=== PATIENT | female | born 1965 | race Caucasian/White ===

== ENCOUNTER 2016-11-25 11:03 | Emergency (ER) | payer OTHER ==
[2016-11-25 11:28] VITALS: BP 148/86
--- NOTE | 2016-11-25 11:59 | UC ---
Knee Pain HPI - HPI Summary HPI Summary: Patient has had chronic right hip and left knee pain. She states that her hip is due to five bulging discs and that this is not a new problem. In the morning , her hip is stiff and painful when she wakes. After moving and walking, the stiffness gets better. Her left knee is not a new problem but has more recently worsened. Three days ago, her dog jumped on her leg, and she heard a "pop." She states that since then, her knee has been popping when she stands up. She complains of constant pain. When she sits, the pain shoots up her thigh. When she stands, the pain shoots down her leg. She has tried Ibuprofen, but cannot always take it because she says that it makes her sleepy and she works overnight shifts. - History of Current Complaint Chief Complaint: UCLowerExtremity Stated Complaint: RIGHT HIP,LEFT KNEE PAIN Time Seen by Provider: 11/25/16 11:33 Hx Obtained From: Patient Hx Last Menstrual Period: June Onset/Duration: Gradual Onset - Chronic pain that worsened over the last three days Severity Initially: Moderate Severity Currently: Severe Pain Intensity: 10 Pain Scale Used: 0-10 Numeric Character: Sharp, Aching, Stiffness Aggravating Factor(s): Movement - also hurts at rest Alleviating Factor(s): OTC Meds Associated Signs And Symptoms: Positive: Swelling Able to Bear Weight: Yes - Allergies/Home Medications Allergies/Adverse Reactions: Allergies Allergy/AdvReac Type Severity Reaction Status Date / Time Cephalexin [From Keflex] Allergy Intermediate Rash, Verified 11/25/16 11:28 throat swelling Penicillins Allergy Intermediate rash, Verified 11/25/16 11:28 throat swelling Prednisone Allergy Intermediate Hallucinati Verified 11/25/16 11:28 ons Bee Venom Allergy Swelling Verified 11/25/16 11:28 Of Face,Lips,& Throat PMH/Surg Hx/FS Hx/Imm Hx Previously Healthy: Yes Cardiovascular History Of: Reports: Hypertension Respiratory History Of: Reports: Asthma - Surgical History Surgical History: Yes Surgery Procedure, Year, and Place: s/p Trach [id number]. tubal ligation. hernia 1998 - Family History Known Family History: Positive: Other - cancer, suicide in father - Social History Occupation: Employed Part-time Lives: With Family Alcohol Use: None Substance Use Type: None Smoking Status (MU): Former Smoker When Did the Patient Quit Smoking/Using Tobacco: 25 years ago - Immunization History Most Recent Influenza Vaccination: Not the 2016/2016 Season Most Recent Tetanus Shot: unknown Review of Systems Constitutional: Negative Skin: Negative Eyes: Negative ENT: Negative Respiratory: Negative Cardiovascular: Negative Gastrointestinal: Negative Genitourinary: Negative Motor: Negative Neurovascular: Negative Musculoskeletal: Edema, Other: - Pain in left knee and right hip Neurological: Negative Psychological: Negative All Other Systems Reviewed And Are Negative: Yes Physical Exam Triage Information Reviewed: Yes Appearance: Well-Appearing, No Pain Distress Vital Signs: Initial Vital Signs Temp 98.1 F 11/25/16 11:21 Pulse 82 11/25/16 11:21 Resp 16 11/25/16 11:21 BP 148/86 11/25/16 11:21 Pulse Ox 100 11/25/16 11:21 Vital Signs Reviewed: Yes Eye Exam: Normal Eyes: Positive: Conjunctiva Clear ENT Exam: Normal ENT: Positive: Normal ENT inspection Neck exam: Normal Neck: Positive: Supple, Nontender Respiratory Exam: Normal Respiratory: Positive: Chest non-tender, Lungs clear, Normal breath sounds Cardiovascular Exam: Normal Cardiovascular: Positive: RRR, No Murmur Musculoskeletal Exam: Other Musculoskeletal: Positive: ROM Limited @ - left knee, Edema @ - left knee Neurological Exam: Normal Neurological: Positive: Alert, Muscle Tone Normal Psychological Exam: Normal Psychological: Positive: Age Appropriate Behavior Skin Exam: Normal Knee Pain Course/Dx - Course Course Of Treatment: The x-ray showed arthritic changes in the left knee. We will refer the patient to orthopedics. We have encouraged her to use Ibuprofen for the pain and swelling, and to use ice. - Differential Dx/Diagnosis Differential Diagnosis/HQI/PQRI: Internal Derangement Of Knee, Sprain, Strain Provider Diagnoses: Acute on chronic L knee pain. Chronic R hip pain. elevated blood pressure due to discomfort Discharge - Discharge Plan Condition: Stable Disposition: HOME Patient Education Materials: Arthritis (ED) Print Language: HONG KONGER Forms: *Work Release Referrals: PIPPA Rico [Primary Care Provider] - Linh Santos MD [Medical Doctor] - Additional Instructions: The x-ray showed arthritis in the left knee. We would like for you to follow-up with orthopedics. Continue using Ibuprofen for pain and swelling. You can also use ice for the swelling.
--- NOTE | 2016-11-25 12:21 | RAD ---
INDICATION: Left knee pain COMPARISON: None TECHNIQUE: AP, lateral, tunnel, and sunrise views were obtained. FINDINGS: There is minor medial joint space narrowing and minor patellofemoral osteoarthritis. There is no acute bony change. There is no joint effusion. IMPRESSION: MINOR DEGENERATIVE CHANGE. NO ACUTE FINDINGS.
== END 2016-11-25 12:42 | disposition home or self-care (01) ==
LOC: UCCORT 11:03
DX: M25.562 Pain in left knee (principal); M25.551 Pain in right hip; R03.0 Elevated blood-pressure reading, without diagnosis of hypertension; I10 Essential (primary) hypertension; J45.909 Unspecified asthma, uncomplicated; Z88.1 Allergy status to other antibiotic agents; Z88.0 Allergy status to penicillin; Z87.891 Personal history of nicotine dependence
CPT/HCPCS: 99212; G0463

== ENCOUNTER 2017-02-08 05:53 | Day surgery (SDC) | payer OTHER ==
--- NOTE | 2017-01-29 03:57 | HP ---
HISTORY AND PHYSICAL: DATE OF ADMISSION: 02/08/17 DATE OF OFFICE VISIT: 01/26/17 SURGEON: Linh Santos MD. (DICTATED BY LAMONT MURRAY) PROCEDURE: Left knee arthroscopy with partial medial meniscectomy, possible synovectomy, possible chondroplasty. CHIEF COMPLAINT: Left knee pain. HISTORY OF PRESENT ILLNESS: Marnie is a 51-year-old female with complaints of left knee pain. An MRI showed a medial meniscus tear and she elected to proceed with left knee arthroscopy. PAST MEDICAL HISTORY: Asthma and hypertension. PAST SURGICAL HISTORY: Tubal ligation, hernia repair, teeth extraction, tracheostomy. CURRENT MEDICATIONS: 1. Aspirin. 2. Pro-Air HFA. 3. Lisinopril/hydrochlorothiazide. 4. Albuterol. 5. EpiPen. ALLERGIES: PENICILLIN, KEFLEX, PREDNISONE and BEE STINGS. FAMILY HISTORY: Family history of heart disease; emphysema; diabetes; lung, kidney, prostate cancer, and COPD. SOCIAL HISTORY: She is a 51-year-old female. She lives with her . She does not smoke or use drugs. She uses occasional alcohol. REVIEW OF SYSTEMS: A complete 14-point review of systems is reviewed with the patient and was all negative and noncontributory. PHYSICAL EXAMINATION GENERAL: She is well-developed, well-nourished, in no acute distress. VITAL SIGNS: She stands 5 feet 8 inches tall, weighs 197 pounds, her blood pressure is 128/81, her heart rate is 93. HEENT: Normocephalic and atraumatic. NECK: Supple. No palpable lymph node. Trachea is midline. PULMONARY: Lungs are clear to auscultation bilaterally. CARDIO: Regular rate and rhythm. Strong S1, S2. No murmurs, gallops, rubs. No peripheral edema. ABDOMEN: Soft, nontender, nondistended. NEUROLOGIC: She is alert and oriented x3. Cranial nerves II through XII are intact. MUSCULOSKELETAL: Left lower extremity, the skin is intact. There are no open wounds or abrasions. She has some tenderness over the medial joint line. There is a mild joint effusion. Her lower extremities muscle group strengths are intact at 5/5. She has intact sensation. 2+ dorsalis pedis pulses. STUDIES: An MRI of the left knee shows a medial meniscus tear and a moderate joint effusion. ASSESSMENT AND PLAN: Ms. Dye is a 51-year-old female with complaints of left knee pain. An MRI shows a left medial meniscus tear. She has elected to proceed with a left knee arthroscopy with partial medial meniscectomy, possible synovectomy, and possible chondroplasty. She will follow with Dr. Santos 2 weeks after the surgery. LAMONT MURRAY [id number]/[facility] #: [id number] LUCIANA
[~2017-02-08 05:53] MED LIST: Buffered Lidocaine 0.9% SYRIN* 5 ML/SYR SYRINGE INTRADERM ONE
[2017-02-08] MEDS ORDERED: Levalbuterol 1.25MG/0.5ML NEB ONE (05:59)
[2017-02-08] MEDS ORDERED: Dexamethasone IV* 4 MG/ML 1 ML (4 MG) ONE (05:59)
[2017-02-08] MEDS ORDERED: Clindamycin 900 MG IVPREMIX(* 900 MG/50 ML SDV IV ONE (05:59)
[2017-02-08] MEDS ORDERED: Famotidine IV* 10 MG/ML 2 ML (20 mg) ONE (05:59)
[2017-02-08] MEDS ORDERED: Dexamethasone IV* 4 MG/ML 1 ML (4 MG) IV SLOW PU ONE (06:00)
[2017-02-08] MEDS ORDERED: Levalbuterol 0.63MG/3ML NEB INH ONE (06:00)
[2017-02-08] MEDS ORDERED: Buffered Lidocaine 0.9% SYRIN* 5 ML/SYR SYRINGE ONE (06:00)
[2017-02-08] MEDS ORDERED: Famotidine IV* 10 MG/ML 2 ML (20 mg) IV ONE (06:00)
[2017-02-08] MEDS ORDERED: EPINEPHrine AMP 1 MG/ML ONE (06:51)
[2017-02-08] MEDS ORDERED: methylPREDNISolone ACETATE 80* 80 MG/ML 1 ML VIAL ONE (06:51)
[2017-02-08] MEDS ORDERED: Bupivacaine 0.5% SDV PF* 30 ML VIAL ONE (06:52)
[2017-02-08] MEDS ORDERED: fentaNYL* 50 MCG/ML 2 ML VIAL (100 MCG VIAL) ONE (07:21)
[2017-02-08] MEDS ORDERED: Midazolam* 1 MG/ML 5 ML VIAL (5 MG) ONE (07:21)
[2017-02-08] MEDS ORDERED: Propofol* 10 MG/ML 20 ML BTL IV PUSH ONE (07:22)
[2017-02-08] MEDS ORDERED: Ketorolac INJ* 30 MG/ML 1 ML VIAL ONE (07:22)
[2017-02-08] MEDS ORDERED: Chloroprocaine 2%* 20 ML VIAL ONE (07:22)
[2017-02-08] MEDS ORDERED: Ondansetron INJ* 2 MG/ML VIAL ONE (07:22)
[2017-02-08] MEDS ORDERED: oxyCODONE/Acetamin 5/325 MG* TAB PO PRN (07:50)
[2017-02-08] MEDS ORDERED: DiMENhydriNATE IV* 50 MG/ML VIAL IV PUSH PRN (07:50)
[2017-02-08] MEDS ORDERED: Ondansetron INJ* 2 MG/ML VIAL IV PRN (07:50)
[2017-02-08] MEDS ORDERED: fentaNYL* 50 MCG/ML 2 ML VIAL (100 MCG VIAL) IV PRN (07:50)
[2017-02-08] MEDS ORDERED: Acetaminophen TAB* 325 MG ONE (10:22)
[2017-02-08 10:38] VITALS: BP 136/65
--- NOTE | 2017-02-09 14:59 | OP ---
OPERATIVE NOTE: DATE OF OPERATION: 02/08/17 DATE OF : 63 ATTENDING SURGEON: Linh Santos MD [employer] MEMBER: LAMONT Edge Ms. did help throughout the procedure with preparation of the leg, wound retraction, manipu lation of the knee, and wound closure. ANESTHESIOLOGIST: Dr. Gama. ANESTHESIA: Spinal. PRE-OP DIAGNOSIS: Left knee pain with meniscal tear and osteoarthritis. POST-OP DIAGNOSIS: Left knee pain with displaced lateral meniscal tear, medial plica, moderate oste oarthritis tricompartmental. PROCEDURE PERFORMED: Left knee arthroscopy with patrial lateral meniscectomy and medial plica excis ion. ESTIMATED BLOOD LOSS: Less than 25 cc. COMPLICATIONS: None. SPECIMEN: None. BRIEF HISTORY/INDICATIONS: Ms. Albaro Lopez is a 51-year-old female with many months of increasin gly severe left knee pain. Her history and physical exam were consistent with meniscal tear and MRI confirmed this. She did have some baseline arthritis. The patient elected to proceed with left kn ee arthroscopy and partial meniscectomy with possible chondroplasty and synovectomy. Informed conse nt was obtained from the patient. She understood the risks of surgery included, but were not limite d to bleeding, infection, damage to nearby structures, continued pain, need for further surgery, str ada, heart attack, blood clot, and . She wished to proceed. Specifically, the patient understood she has continued to have some arthritic pain and may have a re -tear of the meniscus in the future. INTRAOPERATIVE FINDINGS: Intraoperatively, the patient was noted to have moderate to severe arthrit is in the patellofemoral compartment and medial compartment, mild to moderate arthritis in the later al compartment. These were grade 3 and 4 Outerbridge cartilage changes in the medial and patellofem oral compartments. She had a large bucket handle type tear of the body of the lateral meniscus, whi ch was displaced into the joint and involved the white-white and white-red zone. Posterior medial me niscus was not well visualized or easily displaced. ACL appeared to be intact. DESCRIPTION OF PROCEDURE: Ms. Albaro Lopez is a 51-year-old female who is identified in the [facility] unit. Her left lower extremity was marked as the correct operative site. Informed consent was signed and placed in the chart. The patient was taken to the operating room and placed under s pedro anesthesia without difficulty. Her left lower extremity was prepped and draped in the usual s terile fashion. Preop time-out was made to correctly identify the patient's side and site. Appropr iate perioperative antibiotics were given within 1 hour of incision. A 0.5-cm anterolateral portal incision was made with a 15-blade and carried down through the capsule . As soon as the light and water sources were turned on, the knee was easily visualized. A tour of the knee joint was performed. Suprapatellar pouch had no obvious abnormality. Patellofemoral comp artment showed some grade 3 and 4 Outerbridge cartilage changes with exposed subchondral bone. Ther e was a large medial plica, which did impinge with knee range of motion. Medial gutter showed no ob vious loose body. Medial compartment showed some grade 3 and 4 Outerbridge cartilage changes with e xposed subchondral bone along the medial femoral condyle. Medial meniscus showed no obvious menisca l tear. ACL appeared to be intact. The knee was placed in a [id number] position. There was a large displaced anterior meniscal tear of the lateral meniscus. Lateral compartment had minimal deg enerative changes. Lateral gutter had no obvious loose body or plica. Under direct visualization, a medial portal incision was made. A probe was introduced and a second tour of the knee joint was performed. No significant posterior meniscal tear was noted along the me dial meniscus. Shaver and radiofrequency ablation wand were used to excise the medial plica until t here was no longer any impingement with range of motion. Medial and patellofemoral compartments wer e noted to have significant amount of exposed subchondral bone. The knee was placed in [id number]-[id number] r position. Shaver and straight biter were used to excise the bucket handle type tear of the body o f the lateral meniscus. This was in the white-white and white-red zone. A smooth border of the meni scus was obtained. Probing of the meniscus showed no further tears. The knee was copiously irrigated with sterile saline. All instruments were carefully removed. The incisions were closed using interrupted 3-0 nylon suture. Intraarticular injection of 80 mg of Depo- Medrol and 6 cc of 0.25% Marcaine was placed in the knee joint. Sterile Xeroform, 4x4's, and Webril were used to cover the incision. Flakito wrap and cold pack were placed over this. The patient's anesthesia was reversed without difficulty. She was taken to the PACU in stable condi tion. Intended weightbearing will be weightbearing as tolerated. Intended DVT prophylaxis will be aspirin. She will follow up in 2 weeks' time for suture removal. [id number]/[facility] #: [id number]
== END 2017-02-08 10:40 | disposition home or self-care (01) ==
LOC: OR 05:53
PROVIDERS: ATTEND Orthopaedic Surgery Adult Reconstructive Orthopaedic Surgery
DX: M25.562 Pain in left knee (principal); M67.52 Plica syndrome, left knee; M17.12 Unilateral primary osteoarthritis, left knee; M23.362 Other meniscus derangements, other lateral meniscus, left knee; J45.909 Unspecified asthma, uncomplicated; I10 Essential (primary) hypertension; Z79.82 Long term (current) use of aspirin; Z88.1 Allergy status to other antibiotic agents; Z88.0 Allergy status to penicillin; Z88.8 Allergy status to other drugs, medicaments and biological substances
CPT/HCPCS: A9270-GY; J0171; J1040; J1100; J1885; J2250; J2400; J2405; J2704; J3010

== ENCOUNTER 2018-01-24 10:11 | Emergency (ER) | payer SELFPAY ==
--- NOTE | 2018-01-24 10:38 | UC ---
Throat Pain/Nasal Tanvir HPI - HPI Summary HPI Summary: 52 y/o female presents to the urgent care c/o sore throat, productive cough for the past 2 days. Pt reports cough now has triggered her asthma since he developed wheezing this morning. Pt states she has been exposed to strep at her daughter's daycare. Cough worse at night, unable to sleep last night. Pain w/ swallowing is 9/10. She has not done her nebulizer tx yet. Pt request a note for work. Pt denies fever, SOB, chest pain, abdominal pain, N/V/D. Pt has multiple alleries to medications. She is allergic to Prednisone PO. - History of Current Complaint Stated Complaint: SORE THROAT,COUGH,RESPIRATORY Time Seen by Provider: 01/24/18 10:31 Hx Obtained From: Patient Hx Last Menstrual Period: June ?: No - menopausal Onset/Duration: Gradual Onset, Lasting Days - 2 days, Still Present, Worse Since - yesterday Severity: Mild Pain Intensity: 0 Pain Scale Used: 0-10 Numeric Cough: Sputum Appears - yellowish Associated Signs & Symptoms: Positive: Dysphagia, Nasal Discharge - Epiglottits Risk Factors Epiglottis Risk Factors: Negative - Allergies/Home Medications Allergies/Adverse Reactions: Allergies Allergy/AdvReac Type Severity Reaction Status Date / Time cephalexin Allergy Rash & Verified 01/24/18 10:57 throat swelling Penicillins Allergy Swelling Verified 01/24/18 10:56 of Throat, rash Perfume [Fragrance] Allergy Coughing Verified 02/08/17 06:12 prednisone Allergy Hallucinati Verified 01/24/18 10:47 ons bee sting Allergy Swelling Uncoded 01/24/18 10:56 Of Face,Lips,& Throat Home Medications: Home Medications Al Hydrox/Mg Hydrox/Amairani BULK* [Mylanta - BULK BOT*] 1 silvana PO SEE INSTRUCTIONS PRN 01/24/18 [History Confirmed 01/24/18] Multivitamin [Multivitamins] 1 cap PO DAILY 01/24/18 [History Confirmed 01/24/18 ] PMH/Surg Hx/FS Hx/Imm Hx Previously Healthy: Yes Cardiovascular History: Hypertension Respiratory History: Asthma - Surgical History Surgical History: Yes Surgery Procedure, Year, and Place: s/p Trach [id number]. tubal ligation. hernia 1998 - Family History Known Family History: Positive: Cardiac Disease, Hypertension, Diabetes Family History: cancer, suicide in father - Social History Occupation: Employed Full-time Lives: With Family Alcohol Use: Occasionally Substance Use Type: None Smoking Status (MU): Former Smoker Amount Used/How Often: SOCIALLY X 15 YEARS Have You Smoked in the Last Year: No When Did the Patient Quit Smoking/Using Tobacco: 25 years ago - Immunization History Most Recent Influenza Vaccination: Not the 2016/2017 Season Most Recent Tetanus Shot: unknown Review of Systems Constitutional: Negative Skin: Negative Eyes: Negative ENT: Sore Throat, Nasal Discharge, Sinus Congestion Respiratory: Cough - productive yellowish phlegm, Other - wheezing Cardiovascular: Negative Gastrointestinal: Negative Genitourinary: Negative Motor: Negative Neurovascular: Negative Musculoskeletal: Negative Neurological: Negative Psychological: Negative Is Patient Immunocompromised?: No All Other Systems Reviewed And Are Negative: Yes Physical Exam - Summary Physical Exam Summary: Vital Signs Reviewed: Yes General: well developed, well nourished female sitting in the examining table w/ o any apparent distress Eyes: Positive: Conjunctiva Clear - PERRLA, EOMI, fundi grossly normal ENT: Positive: Normal ENT inspection, Hearing grossly normal, Pharynx mild erythema, Nasal congestion - edematous and erythematous nasal mucosa, Nasal drainage - yellowish drainage, TMs normal. Negative: Tonsillar swelling, Tonsillar exudate Neck: Positive: Supple, Nontender, No Lymphadenopathy Respiratory: no orthopnea or dyspnea. Able to speak in full sentences, no retractions or accessory muscle use, no tripod position, stridor, or head bobbing. Positive breath sounds bilaterally, scattered wheezing in B/L postrior lungs w/ mild rhonchi, no crackles or rales.. Cardiovascular: Positive: RRR, No Murmur, Pulses Normal, Brisk Capillary Refill Abdomen Description: Positive: Nontender, No Organomegaly, Soft. Negative: CVA Tenderness (R), CVA Tenderness (L) Bowel Sounds: Positive: Present Musculoskeletal Exam: Normal Musculoskeletal: Positive: Strength Intact, ROM Intact, No Edema Neurological Exam: Normal Psychological Exam: Normal Skin Exam: Normal Triage Information Reviewed: Yes Throat Pain/Nasal Course/Dx - Course Course Of Treatment: 52 y/o female presents to the urgent care c/o sore throat, productive cough for the past 2 days. Pt reports cough now has triggered her asthma since he developed wheezing this morning. Pt states she has been exposed to strep at her daughter's daycare. Cough worse at night, unable to sleep last night. Pain w/ swallowing is 9/10. She has not done her nebulizer tx yet. Pt request a note for work. Pt denies fever, SOB, chest pain, abdominal pain, N/V/ D. Pt has multiple alleries to medications. She is allergic to Prednisone PO. Hx obtained. Pt w/ positive breath sounds bilaterally, scattered wheezing in B/ L postrior lungs w/ mild rhonchi, no crackles or rales. O2SAt: 99%. Pt w/ Asthma exacerbation: due to Acute Bronchitis. Pt allergic to prednisonePO. Duoneb Treatment given to patient. Patient tolerated well treatment and lungs improved, mild wheezing only in posterior RT lung, O2 sat 100%. Patient prescribed Z-thony PO , Tessalon tabs PO and Duo neb Tx , as directed below. The patient was recommended to increase fluid intake. Take medications as recommended and patient advised to continue treatments TID. Patient recommended to return to the clinic or go to the nearest ER if symptoms do not improve or worsen. Patient understood and agree w/ plan of care. Note for work given. Pt left clinic ambulating and hemodynamically stable. - Differential Dx/Diagnosis Differential Diagnosis/HQI/PQRI: Influenza, Pharyngitis, Sinusitis, URI, Other - bronchitis, asthma exacerbation, pneumonia Provider Diagnoses: 1- Asthma exacerbation due to bronchitis. 2- Cough. 3- Uncontrolled HTN Discharge - Sign-Out/Discharge Documenting (check all that apply): Discharge/Admit/Transfer - D/c home - Discharge Plan Condition: Stable Disposition: HOME Prescriptions: Albuterol/Ipratropium NEB.DIONNE* [Duoneb (Albuterol 2.5 MG/Ipratropium 0.5 MG)] 1 neb INH Q6H PRN #1 thony PRN Reason: Wheezing Azithromyxin THONY (NF) [Z-Thony (Zithromax) 250 mg tabs #6] 2 tab PO .TODAY, THEN 1 DAILY #6 tab Benzonatate CAP* [Tessalon 100 MG CAP*] 100 mg PO TID PRN #21 cap PRN Reason: Cough Patient Education Materials: Asthma (ED), Acute Bronchitis (ED), Low-Sodium Diet (ED) Forms: *Work Release Referrals: [facility] [Primary Care Provider] - 3 Days Additional Instructions: 1-Please take full course of antibiotic to avoid resistance. 2-Take Tessalon PO tabs as directed and Due Duoneb nebulizer to alleviate cough and wheezing. Increase fluid intake, rest and eat well. 3- If symptoms do not improve or worsen or your develop SOB with fever and severe wheezing please go immediately to the ER further evaluation and treatment. 4- F/u with your PCP in 2-3 days for further management on your Asthma 5-Your BP is elevated today. please decrease salt in your diet, monitor BP and if it continues to be elevated please f/u with your PCP for further management - Billing Disposition and Condition Condition: STABLE Disposition: Home
[2018-01-24 10:41] VITALS: BP 148/96
[2018-01-24] MEDS ORDERED: Albuterol/Ipratropium NEB.SOL* Albuterol 2.5 MG/Ipratropium 0.5 MG 3 ML INH ONE (10:54)
== END 2018-01-24 11:42 | disposition home or self-care (01) ==
LOC: UCCORT 10:11
DX: J45.901 Unspecified asthma with (acute) exacerbation (principal); R05 Cough; I10 Essential (primary) hypertension; Z88.0 Allergy status to penicillin; Z88.1 Allergy status to other antibiotic agents; Z91.09 Other allergy status, other than to drugs and biological substances; Z88.8 Allergy status to other drugs, medicaments and biological substances; Z87.891 Personal history of nicotine dependence
CPT/HCPCS: 87651; 99212; A9270-GY; G0463

== ENCOUNTER 2018-12-04 15:47 | Emergency (ER) | payer SELFPAY ==
[2018-12-04 16:32] VITALS: BP 153/88
--- NOTE | 2018-12-04 17:04 | UC ---
Respiratory Complaint HPI - HPI Summary HPI Summary: 53-year-old female comes in with a chief complaint of upper respiratory tract infection symptoms for 2 days. Patient has asthma and she's had increased wheezing. Patient reports allergies to penicillin also is not able to take penicillin for her asthma exacerbations. She is not a smoker. She's had some chills but no fevers. Her albuterol does help with the symptoms. - History of Current Complaint Chief Complaint: UCRespiratory Stated Complaint: CONGESTION,COUGH,WHEEZY Time Seen by Provider: 12/04/18 16:41 Hx Last Menstrual Period: June Pain Intensity: 5 - Allergies/Home Medications Allergies/Adverse Reactions: Allergies Allergy/AdvReac Type Severity Reaction Status Date / Time bee venom protein (honey bee) Allergy Swelling Verified 12/04/18 16:37 Of Face,Lips,& Throat cephalexin Allergy Rash & Verified 12/04/18 16:37 throat swelling Penicillins Allergy Swelling Verified 12/04/18 16:37 of Throat, rash Perfume [Fragrance] Allergy Coughing Verified 12/04/18 16:37 prednisone Allergy Hallucinati Verified 12/04/18 16:37 ons PMH/Surg Hx/FS Hx/Imm Hx Previously Healthy: Yes Cardiovascular History: Hypertension Respiratory History: Asthma - Surgical History Surgical History: Yes Surgery Procedure, Year, and Place: s/p Trach [id number]. tubal ligation. hernia 1998 - Family History Known Family History: Positive: Cardiac Disease, Hypertension, Diabetes, Other - cancer, suicide in father Family History: cancer, suicide in father - Social History Alcohol Use: Occasionally Substance Use Type: None Smoking Status (MU): Former Smoker Amount Used/How Often: SOCIALLY X 15 YEARS Have You Smoked in the Last Year: No When Did the Patient Quit Smoking/Using Tobacco: 25 years ago - Immunization History Most Recent Influenza Vaccination: Not the 2016/2017 Season Most Recent Tetanus Shot: unknown Review of Systems All Other Systems Reviewed And Are Negative: Yes Constitutional: Positive: Chills Skin: Positive: Negative Eyes: Positive: Negative ENT: Positive: Nasal Discharge, Sinus Congestion Respiratory: Positive: Shortness Of Breath, Cough, Other - SEE HPI Cardiovascular: Positive: Negative Gastrointestinal: Positive: Negative Motor: Positive: Negative Neurovascular: Positive: Negative Musculoskeletal: Positive: Negative. Negative: Edema Neurological: Positive: Negative Psychological: Positive: Negative Is Patient Immunocompromised?: No Physical Exam Triage Information Reviewed: Yes Appearance: No Pain Distress, Well-Nourished, Ill-Appearing - MILD Vital Signs: Initial Vital Signs Temp 98.5 F 12/04/18 16:23 Pulse 96 12/04/18 16:23 Resp 22 12/04/18 16:23 BP 153/88 12/04/18 16:23 Pulse Ox 98 12/04/18 16:23 Vital Signs Reviewed: Yes Eye Exam: Normal Eyes: Positive: Conjunctiva Clear ENT: Positive: Pharyngeal erythema, Nasal congestion, Nasal drainage, TMs normal Neck: Positive: Supple Respiratory: Positive: No respiratory distress, Rhonchi Cardiovascular: Positive: RRR Musculoskeletal Exam: Normal Musculoskeletal: Positive: Strength Intact, ROM Intact, No Edema, Other: - NO CALF TENDERNESS Neurological: Positive: Alert Psychological Exam: Normal Psychological: Positive: Age Appropriate Behavior Skin Exam: Normal Respiratory Course/Dx - Course Course Of Treatment: DISCUSSED VIRAL VERSES BACTERIAL INFECTION AND THE ROLE OF ANTIBIOTICS. THE PATIENT WISHES TO BE ON ANTIBIOTICS AT THIS TIME. WE DISCUSSED CXR. AT THIS TIME, THE PATIENT PREFERS NO CXR. - Differential Dx/Diagnosis Provider Diagnosis: Bronchitis, Asthma Discharge - Sign-Out/Discharge Documenting (check all that apply): Patient Departure All imaging exams completed and their final reports reviewed: No Studies - Discharge Plan Condition: Stable Disposition: HOME Prescriptions: Azithromyxin JAMEE (NF) [Z-Jamee (Zithromax) 250 mg tabs #6] 2 tab PO .TODAY, THEN 1 DAILY #6 tab Patient Education Materials: Asthma (ED), Acute Bronchitis (ED) Referrals: Vidya Juarez MD [Primary Care Provider] - Additional Instructions: FOLLOW UP WITH YOUR DOCTOR IF NOT COMPLETELY IMPROVED. GET REEVALUATED SOONER IF YOUR CONDITION WORSENS OR ANY QUESTIONS OR CONCERNS. - Billing Disposition and Condition Condition: STABLE Disposition: Home
== END 2018-12-04 17:14 | disposition home or self-care (01) ==
LOC: UCCORT 15:47
DX: J45.909 Unspecified asthma, uncomplicated (principal); Z88.0 Allergy status to penicillin; I10 Essential (primary) hypertension; Z87.891 Personal history of nicotine dependence
CPT/HCPCS: 99212; G0463